=== PATIENT | male | born 1960 | race Hispanic/Latino ===

== ENCOUNTER 2020-09-01 17:54 | Emergency (ER) | payer SELFPAY ==
[2020-09-01] MEDS ORDERED: Morphine 4 MG/ML VIAL ONE (18:43)
[2020-09-01] MEDS ORDERED: Ketorolac Tromethamine 30 MG/ML VIAL ONE (18:43)
[2020-09-01] MEDS ORDERED: Morphine 2 MG/ML VIAL ONE (18:43)
[2020-09-01 18:53] LABS: Bilirubin Negative (Negative); Blood, Urine Negative (Negative); Clarity Clear (Clear); Glucose, Urine (Dipstick) 50 mg/dL (Negative); Ketone, Urine Negative (Negative); Leukocyte Negative Leu/uL (Negative); Nitrite Negative (Negative); Protein, Urine (Dipstick) Negative (Neg-Trace); Specific Gravity, Urine 1.005 (1.002-1.036); Urobilinogen Normal mg/dL (Less than 2); pH, Urine 6.5 (5.0-9.0)
--- NOTE | 2020-09-01 19:25 | CT ---
CT ABDOMEN AND PELVIS WITHOUT IV CONTRAST: 09/01/20 INDICATIONS: Left lower abdominal pain. Pain with urination. Correlation made to a prior CT from 2001. FINDINGS: Lung bases clear. Liver, spleen, and pancreas unremarkable. Stomach and duodenum unremarkable. Adrenal glands normal. Patient is post right nephrectomy since the prior study. The left kidney is unremarkable. There is no evidence of urinary tract calculus or obstruction. The u rinary bladder is unremarkable. Small bowel loops are normal caliber. Appendix is identified and appe ars normal. Colon unremarkable. Aorta normal caliber. No adenopathy or free fluid. Images through the pelvis show unremarkable urinar y bladder. Mild prostatic hypertrophy. Osseous structures unremarkable with degenerative spine change s throughout the visualized spine. There is posterior spondylolysis and mild anterolisthesis at L5-S1 with broad based disc bulge at this level. IMPRESSION: 1. No evidence of acute intra-abdominal process. 2. 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 POS: [facility]
[2020-09-01 21:03] LABS: #Eosinphils 0.1 thou/uL (0.0-0.7); #Lymphocytes 1.8 thou/uL (1.20-3.40); #Monocytes 0.4 thou/uL (0.11-0.59); #Neutrophils 4.3 thou/uL (1.40-6.50); %Basophils 0.7 % (0.0-1.0); %Eosinophils 1.3 % (0.0-10.0); %Lymphocytes 27.3 % (21.0-51.0); %Monocytes 5.3 % (0.0-10.0); %Neutrophils 65.4 % (42.0-75.0); Hemoglobin 15.3 g/dL (14.0-18.0); Mean Corpuscular HGB CONC 33.2 g/dL (32.0-36.0); Mean Corpuscular Hemoglobin 29.8 pg (27.0-31.0); Mean Corpuscular Volume 89.6 fL (78.0-98.0); Mean Platelet Volume 10.8 fL (7.4-10.4); Platelet Count 137 thou/uL (130-400); RBC Distribution Width 11.7 % (11.5-14.5); Red Blood Cell (RBC) Count 5.13 mill/uL (4.70-6.10); White Blood Cell (WBC) Count 6.6 thou/uL (4.8-10.8)
[2020-09-01 21:23] LABS: Anion Gap 14 mmol/L (10-20); BUN (Urea Nitrogen) 16 mg/dL (8.4-25.7); Calc. Creatinine Clearance 0 mL/min (70-130); Calcium 8.8 mg/dL (7.8-10.44); Carbon Dioxide 25 mmol/L (22-29); Chloride 104 mmol/L (98-107); Glucose 101 mg/dL (70-105); Potassium 4.5 mmol/L (3.5-5.1); Sodium 138 mmol/L (136-145)
== END 2020-09-01 22:24 | disposition home or self-care (01) ==
LOC: ERS 17:54
DX: N20.1 Calculus of ureter (principal); N45.1 Epididymitis; E11.9 Type 2 diabetes mellitus without complications; I10 Essential (primary) hypertension; Z79.84 Long term (current) use of oral hypoglycemic drugs; Z79.899 Other long term (current) drug therapy
CPT/HCPCS: 36415; 74176; 80048; 81003; 85025; 96374; 96375; J1885; J2270

== ENCOUNTER 2023-05-10 03:26 | Emergency (ER) | payer SELFPAY ==
[2023-05-10] MEDS ORDERED: Ipratropium/Albuterol 3 ML NEB ONE (03:37)
[2023-05-10] MEDS ORDERED: Albuterol 2.5 MG/0.5 ML NEB ONE ×3 (03:48→05:38)
[2023-05-10] MEDS ORDERED: methylPREDNISolone Sod Succ/PF 125 MG/2 ML VIAL ONE (03:50)
[2023-05-10 04:10] LABS: #Eosinphils 0.1 thou/uL (0.0-0.7); #Monocytes 0.8 thou/uL (0.11-0.59); #Neutrophils 7.8 thou/uL (1.40-6.50); %Basophils 0.2 % (0.0-1.0); %Eosinophils 1.1 % (0.0-10.0); %Lymphocytes 13.7 % (21.0-51.0); %Monocytes 7.4 % (0.0-10.0); %Neutrophils 77.2 % (42.0-75.0); Hematocrit 42.3 % (42.0-52.0); Hemoglobin 14.1 g/dL (14.0-18.0); Mean Corpuscular HGB CONC 33.3 g/dL (32.0-36.0); Mean Platelet Volume 12.5 fL (7.4-10.4); Platelet Count 163 10x3/uL (130-400); RBC Distribution Width 12.2 % (11.5-14.5); White Blood Cell (WBC) Count 10.1 10x3/uL (4.8-10.8)
[2023-05-10 04:34] LABS: ALT (SGPT) 17 U/L (8-55); AST (SGOT) 15 U/L (5-34); Albumin 4.4 g/dL (3.4-4.8); Alkaline Phosphatase 75 U/L (40-110); Anion Gap 14 mmol/L (10-20); BUN (Urea Nitrogen) 13 mg/dL (8.4-25.7); Bilirubin, Total 0.7 mg/dL (0.2-1.2); Calc. Creatinine Clearance 0 mL/min (70-130); Calcium 9.2 mg/dL (7.8-10.44); Carbon Dioxide 24 mmol/L (23-31); Chloride 104 mmol/L (98-107); Estimated GFR 97; Globulin 2.8 g/dL (2.4-3.5); Glucose 179 mg/dL (80-115); Potassium 3.5 mmol/L (3.5-5.1); Protein, Total 7.2 g/dL (5.8-8.1); Sodium 138 mmol/L (136-145)
[2023-05-10 04:38] LABS: Troponin I 0.046 ng/mL (< 0.028)
[2023-05-10] MEDS ORDERED: Ipratropium Bromide 2.5 ml Neb ONE (05:37)
[2023-05-10 07:05] LABS: Troponin I 0.036 ng/mL (< 0.028)
== END 2023-05-10 07:30 | disposition home or self-care (01) ==
LOC: ERS 03:26
DX: J98.01 Acute bronchospasm (principal); I10 Essential (primary) hypertension; E11.9 Type 2 diabetes mellitus without complications; F17.210 Nicotine dependence, cigarettes, uncomplicated
CPT/HCPCS: 36415; 71045; 80053; 84484; 85025; 93005; 96374; J2930; J7611; J7620